=== PATIENT | female | born 1965 | race African-American/Black ===

== ENCOUNTER → 2017-04-16 | Outpatient (CLI) | payer OTHER ==
[~2017-04-16] MED LIST: KEFLEX250 M1 PO; NAPROSYN500 MG PO
--- NOTE | ~2017-04-16 | MY26 ---
[facility] A Service of [facility] RADIOLOGY TEXT RESULTS PATIENT: ANKUR FULLER LOCATION: [facility] : 65 UNIT #: [id number] AGE: [address]: Chely Godoy APRN SEX: F ORDER DR: [id number] [facility] [address] [place], [place] [address] [id number] O MR#: [id number] Acc #: [id number] NAME: ANKUR FULLER : 1965 SEX: F STUDY DATE/TIME: 04/16/2017 15:08 UNIT: [facility] ROOM: STUDY DESCRIPTION: [facility] W/ CAD BILAT Attending Physician: Chely Godoy A.P.R.N. Referring Physician: Chely Godoy A.P.R.N. Ordering Physician: Chely Godoy A.P.R.N. Primary Care Physician: Chely Godoy A.P.R.N. MEDICAL IMAGING REPORT This report is preliminary unless electronic signature is present EXAM Bilateral diagnostic mammogram INDICATIONS Followup left breast asymmetry PROCEDURE Bilateral CC and MLO views and a true lateral view of the left breast obtained on a digital mammography unit FDA-approved CAD device utilized. COMPARISON 04/20/2016 and 03/29/2016 FINDINGS Scattered fibroglandular density. Persistent asymmetric tissue in the upper left breast. There is no dominant mass or suspicious calcification. IMPRESSION Benign bilateral mammogram. Recommend patient continue with yearly screening. Patient's over the age of 40 are entered into a reminder system with target due date for the next mammogram. A result letter will be sent to the patient. BIRADS: 2 Benign findings. Dictated by... Herbert Cramer M.D. THIS IS AN ELECTRONICALLY VERIFIED REPORT Herbert Cramer M.D. at 04/17/2017 7:08 AM [facility] A Service of [facility] RADIOLOGY TEXT RESULTS PATIENT: ANKUR FULLER LOCATION: [facility] : 65 UNIT #: [id number] AGE: [address]: Chely Godoy APRN SEX: F ORDER DR: RAJESH/ne TD: 04/16/2017 20:15 JOB #: [id number] MEDICAL IMAGING REPORT Page 1 of 1 COPY
== END | disposition home or self-care (01) ==
LOC: CMAM 14:41
DX: R92.2 Inconclusive mammogram (principal)
CPT/HCPCS: G0204